=== PATIENT | male | born 1980 | race Caucasian/White ===

== ENCOUNTER 2017-01-20 09:39 | Emergency (ER) | payer BC, OTHER ==
[2017-01-20 12:25] VITALS: BP 125/73
--- NOTE | 2017-01-20 12:53 | UC ---
Throat Pain/Nasal Joshua HPI - HPI Summary HPI Summary: 37 male presents to [facility] with complaints of sore throat, nasal congestion, body aches and malaise for the past 3 days. States symptoms have not improved. Has been taking tylenol and sudafed without significant relief. Admits to cough, from "post nasal drip". Admits to sick contacts, football team kids have strep. Just had flu shot 1 week ago. Denies fever, nausea/vomiting, chest pain or trouble breathing. Admits to lack of appetite. No other medications or complaints. No PMHx. - History of Current Complaint Chief Complaint: UCGeneralIllness Stated Complaint: SORE THROAT Time Seen by Provider: 01/20/17 12:00 Hx Obtained From: Patient Onset/Duration: Sudden Onset, Lasting Days, Still Present Severity: Moderate Pain Intensity: 5 Pain Scale Used: 0-10 Numeric Cough: Nonproductive - "post nasal drip" Associated Signs & Symptoms: Positive: Dysphagia, Sinus Discomfort, Nasal Discharge - Epiglottits Risk Factors Epiglottis Risk Factors: Negative - Allergies/Home Medications Allergies/Adverse Reactions: Allergies Allergy/AdvReac Type Severity Reaction Status Date / Time Amoxicillin Allergy Itching Verified 01/20/17 12:19 avoids benadryl except in Allergy Headache Uncoded 01/20/17 12:19 extreme c avoids ibuprofen AdvReac Stomach Uncoded 01/20/17 12:19 Cramps Home Medications: Home Medications buPROPion TAB* [Wellbutrin TAB*] 100 mg BEDTIME 01/20/17 [History Confirmed 02/26] lamoTRIgine TAB(*) [Lamictal TAB(*)] 100 mg BEDTIME 01/20/17 [History Confirmed 01/20/17] PMH/Surg Hx/FS Hx/Imm Hx - Additional Past Medical History Additional PMH: No PMHx - Surgical History Surgical History: Yes Surgery Procedure, Year, and Place: R shoulder 2004 - Family History Known Family History: Positive: None - Social History Alcohol Use: Rare Substance Use Type: None Smoking Status (MU): Former Smoker - Immunization History Most Recent Influenza Vaccination: 2017 Review of Systems Constitutional: Chills, Fatigue Skin: Negative Eyes: Negative ENT: Sore Throat, Nasal Discharge, Sinus Congestion, Sinus Pain/Tenderness Respiratory: Cough Cardiovascular: Negative Gastrointestinal: Negative Genitourinary: Negative Musculoskeletal: Myalgia Neurological: Headache All Other Systems Reviewed And Are Negative: Yes Physical Exam Triage Information Reviewed: Yes Appearance: No Pain Distress, Well-Nourished, Ill-Appearing - also sounds congestion, dysphonia Vital Signs: Initial Vital Signs Temp 98.3 F 01/20/17 12:20 Pulse 66 01/20/17 12:20 Resp 16 01/20/17 12:20 BP 125/73 01/20/17 12:20 Pulse Ox 98 01/20/17 12:20 Eyes: Positive: Conjunctiva Clear ENT: Positive: Normal ENT inspection, Hearing grossly normal, Pharynx normal, Nasal congestion, TM dull - left,, TM red - left, minimally, Muffled/hoarse voice. Negative: Nasal drainage, Tonsillar swelling, Tonsillar exudate, Trismus Dental: Positive: Percussion Tenderness @ - maxillary. Negative: Cervical Lymphadenopathy Neck: Positive: Supple, Nontender, No Lymphadenopathy Respiratory: Positive: Chest non-tender, Lungs clear, Normal breath sounds, No respiratory distress, No accessory muscle use. Negative: Rhonchi, Stridor Cardiovascular: Positive: RRR, No Murmur, Pulses Normal Abdomen Description: Positive: Nontender, Soft Bowel Sounds: Positive: Present Musculoskeletal: Positive: Strength Intact, ROM Intact Neurological: Positive: Alert Skin Exam: Normal Throat Pain/Nasal Course/Dx - Course Course Of Treatment: strep and flu obtained and negative appears patient is suffering from an URI versus laryngitis. viral. will treat symptomatically. flonase, continue tylenol, increase fluid intake and plenty of rest. rest voice. saline rinses and tea with honey. salt water gargles, mucinex and chloraseptic spray. Follow up pcp. aware of worsening signs and symptoms to watch out for. - Differential Dx/Diagnosis Differential Diagnosis/HQI/PQRI: Influenza, Laryngitis, Mononucleosis, Otitis Media, Pharyngitis, Sinusitis, Tonsillitis, URI Provider Diagnoses: URI, laryngitis Discharge - Discharge Plan Condition: Stable Disposition: HOME Prescriptions: Azithromycin TAB* [Zithromax TAB (Z-ABBEY) 250 mg #6 tabs] 2 tab PO .TODAY, THEN 1 DAILY #1 abbey Fluticasone NASAL SPRAY 50MCG* [Flonase NASAL SPRAY 50MCG*] 2 spray BOTH NARES DAILY #1 btl Patient Education Materials: Upper Respiratory Infection (ED), Laryngitis (ED) Forms: *Work Release Referrals: No Primary Care Phys,NOPCP [Medical Doctor] - [facility] [Outside] Additional Instructions: Use prescribed flonase as directed. Also recommend using saline rinses/spray. Increase fluid intake, get plenty of rest. Rest voice. Chloraseptic spray to help with sore throat, along with salt water gargles. Recommend taking mucinex. Use humidifier if available at bedtime. Continue tylenol for body aches, headache. Only take antibiotic if symptoms persist or worsen in the next 5-7 days. Follow up with PCP. IF symptoms do not improve or worsen, as discussed please seek medication attention.
== END 2017-01-20 13:20 | disposition home or self-care (01) ==
LOC: UCCORT 09:39
DX: J04.0 Acute laryngitis (principal); Z88.0 Allergy status to penicillin
CPT/HCPCS: 87502; 87651; 99212; G0463

== ENCOUNTER 2017-05-23 09:11 | Emergency (ER) | payer BC ==
[2017-05-23 10:01] VITALS: BP 144/73
[2017-05-23] MEDS ORDERED: Ibuprofen ADULT LIQ* 600 MG/30 ML UDC PO ONE (10:08)
[2017-05-23] MEDS ORDERED: predniSONE TAB* 20 MG PO ONE (10:08)
--- NOTE | 2017-05-23 10:30 | UC ---
Throat Pain/Nasal Joshua HPI - HPI Summary HPI Summary: Pt c/o sudden onset of sore throat, fever, chills, body aches X 1 day. Has known exposure to strep. - History of Current Complaint Chief Complaint: UCRespiratory Stated Complaint: ST Time Seen by Provider: 05/23/17 09:57 Hx Obtained From: Patient Onset/Duration: Sudden Onset, Lasting Days Pain Intensity: 8 Pain Scale Used: 0-10 Numeric Cough: None Associated Signs & Symptoms: Positive: Dysphagia, Fever - Epiglottits Risk Factors Epiglottis Risk Factors: Sudden Onset - Allergies/Home Medications Allergies/Adverse Reactions: Allergies Allergy/AdvReac Type Severity Reaction Status Date / Time amoxicillin Allergy Hives Verified 05/23/17 10:01 avoids benadryl Allergy See Comment Uncoded 05/23/17 10:01 PMH/Surg Hx/FS Hx/Imm Hx Previously Healthy: Yes - Surgical History Surgical History: Yes Surgery Procedure, Year, and Place: R shoulder 2004 - Family History Known Family History: Positive: None - Social History Occupation: Employed Full-time Lives: With Family Alcohol Use: Rare Substance Use Type: None Smoking Status (MU): Former Smoker Have You Smoked in the Last Year: No - Immunization History Most Recent Influenza Vaccination: 2017 Review of Systems Constitutional: Fever, Chills Skin: Negative Eyes: Negative ENT: Sore Throat Respiratory: Negative Cardiovascular: Negative Gastrointestinal: Negative Genitourinary: Negative Motor: Negative Neurovascular: Negative Musculoskeletal: Myalgia Neurological: Headache Psychological: Negative Is Patient Immunocompromised?: No All Other Systems Reviewed And Are Negative: Yes Physical Exam Triage Information Reviewed: Yes Appearance: Ill-Appearing Vital Signs: Initial Vital Signs Temp 99.3 F 05/23/17 09:58 Pulse 86 05/23/17 09:58 Resp 18 05/23/17 09:58 BP 144/73 05/23/17 09:58 Pulse Ox 98 05/23/17 09:58 Vital Signs Reviewed: Yes Eye Exam: Normal ENT Exam: Other ENT: Positive: Pharyngeal erythema, Tonsillar swelling Dental Exam: Normal Neck exam: Normal Respiratory Exam: Normal Musculoskeletal Exam: Normal Neurological Exam: Normal Psychological Exam: Normal Skin Exam: Normal Throat Pain/Nasal Course/Dx - Differential Dx/Diagnosis Differential Diagnosis/HQI/PQRI: Pharyngitis, Tonsillitis Provider Diagnoses: strep throat Discharge - Discharge Plan Condition: Stable Disposition: HOME Prescriptions: Azithromycin 500 mg PO DAILY #5 tablet Patient Education Materials: Strep Throat (ED) Referrals: PORTIA Davison [Primary Care Provider] - If Needed
== END 2017-05-23 10:24 | disposition home or self-care (01) ==
LOC: UCCORT 09:11
DX: J02.0 Streptococcal pharyngitis (principal); Z87.891 Personal history of nicotine dependence
CPT/HCPCS: 87651; 99212; A9270-GY; G0463; J7512